=== PATIENT | male | born 1935 | race Caucasian/White ===

== ENCOUNTER 2019-05-14 11:18 | Day surgery (SDC) | payer OTHER ==
[2019-05-14 12:26] VITALS: TEMP 98.2
[2019-05-14] MEDS ORDERED: FERRIC CARBOXYMALTOSE 750 MG in SODIUM CHLORIDE 250 ML IVPB ONE (13:00)
[2019-05-14 15:00] VITALS: BP 115/59; PULSE 67
== END 2019-05-14 15:01 | disposition home or self-care (01) ==
LOC: JINFUSION 11:18 → J7W 11:20 → JINFUSION 15:01
PROVIDERS: ATTEND Family Medicine
PROC: 3E033GC Introduction of Other Therapeutic Substance into Peripheral Vein, Percutaneous Approach (ICD-10-PCS; principal; 2019-05-14)
DX: D50.9 Iron deficiency anemia, unspecified (principal)
CPT/HCPCS: 96365; 96366; J1439

== ENCOUNTER 2019-05-21 11:07 | Day surgery (SDC) | payer OTHER ==
[2019-05-21] MEDS ORDERED: FERRIC CARBOXYMALTOSE 750 MG in SODIUM CHLORIDE 250 ML IVPB ONE (12:00)
[2019-05-21 14:03] VITALS: BP 125/58; PULSE 65; TEMP 98.3
== END 2019-05-21 13:15 | disposition home or self-care (01) ==
LOC: JINFUSION 11:07 → J7W 11:10 → JINFUSION 13:15
PROVIDERS: ATTEND Family Medicine
PROC: 3E033GC Introduction of Other Therapeutic Substance into Peripheral Vein, Percutaneous Approach (ICD-10-PCS; principal; 2019-05-21)
DX: D50.9 Iron deficiency anemia, unspecified (principal)
CPT/HCPCS: 96365; J1439

== ENCOUNTER 2020-09-07 11:10 | Day surgery (SDC) | payer OTHER ==
[2020-09-07 11:49] VITALS: TEMP 98; BMI 19.0
[2020-09-07] MEDS ORDERED: FERRIC CARBOXYMALTOSE 750 MG in SODIUM CHLORIDE 250 ML IVPB ONE (12:15)
[2020-09-07 13:47] VITALS: BP 118/50; PULSE 83
== END 2020-09-07 13:49 | disposition home or self-care (01) ==
LOC: FINFUSION 11:10 → FM/S 11:17 → FINFUSION 13:49
PROVIDERS: ATTEND Family Medicine
PROC: 3E033GC Introduction of Other Therapeutic Substance into Peripheral Vein, Percutaneous Approach (ICD-10-PCS; principal; 2020-09-07)
DX: D50.9 Iron deficiency anemia, unspecified (principal)
CPT/HCPCS: 96365; J1439

== ENCOUNTER 2020-09-15 10:57 | Day surgery (SDC) | payer OTHER ==
[2020-09-15 11:21] VITALS: TEMP 98.3; BMI 16.6
[2020-09-15] MEDS ORDERED: FERRIC CARBOXYMALTOSE 750 MG in SODIUM CHLORIDE 250 ML IVPB ONE (11:30)
[2020-09-15 12:32] VITALS: BP 105/50; PULSE 91
== END 2020-09-15 12:30 | disposition home or self-care (01) ==
LOC: FINFUSION 10:57 → FM/S 11:03 → FINFUSION 12:30
PROVIDERS: ATTEND Family Medicine
PROC: 3E033GC Introduction of Other Therapeutic Substance into Peripheral Vein, Percutaneous Approach (ICD-10-PCS; principal; 2020-09-15)
DX: D50.9 Iron deficiency anemia, unspecified (principal)
CPT/HCPCS: 96365; J1439

== ENCOUNTER 2022-03-28 11:15 | Observation (INO) | payer OTHER ==
[2022-03-28] MEDS ORDERED: CEFEPIME HCL/D5W 2 GM/50 ML BAG IVPB ONE (13:10)
[2022-03-28 13:29] LABS: EPITHELIAL CELLS FEW /hpf; TRIPLE PHOSPHATE CRYSTAL MANY /hpf (NONE SEEN)
[2022-03-28] MEDS ORDERED: CEFEPIME HCL 2 GM VIAL (RESTRICTED TO ID) ONE (13:37)
[2022-03-28 13:45] LABS: HEMATOCRIT 37.1 % (35.4-49); HEMOGLOBIN 12.7 G/dL (11.7-16.9); MCH 32.2 pg (25.7-33.7); MCHC 34.2 g/dl (32.0-35.9); MEAN CELL VOLUME 94.2 fl (80-96); MEAN PLT VOLUME 7.3 fl (7.5-11.1); PLATELET COUNT 401.5 10^3/uL (134-434); RBC 3.94 10^6/uL (4.00-5.60); RDW 14.2 % (11.9-15.9); WHITE BLOOD COUNT 8.4 10^3/uL (4.0-10.8)
[2022-03-28 13:52] LABS: ALBUMIN 3.1 g/dl (3.4-5.0); CALCIUM 8.6 mg/dl (8.5-10); TOT PROT 7.3 g/dl (6.4-8.2)
[2022-03-28 18:14] VITALS: BMI 19.0
[2022-03-28] MEDS: CEFTRIAXONE 1 GM in DEXTROSE 5%-WATER - 50 ML IVPB SCH (19:55)
[2022-03-29] MEDS: MAG HYDROX/ALH/SMC/DPHA/LIDO 240 ML MOUTHWASH MM SCH ×5 (00:10→18:30)
[2022-03-29] MEDS: LEVOTHYROXINE NA 25 MCG TABLET (FP) PO SCH (06:23)
[2022-03-29 08:27] LABS: CALCIUM 8.8 mg/dl (8.5-10); PHOSPHOROUS 3.6 mg/dl (2.5-4.9)
[2022-03-29 10:12] LABS: BASO % 0.7 % (0-2.0); EOS % 2.5 % (0-4.5); HEMATOCRIT 34.1 % (35.4-49); HEMOGLOBIN 11.4 GM/dL (11.7-16.9); LYMPH % 18.4 % (8-40); MCH 31.4 pg (25.7-33.7); MCHC 33.5 g/dl (32.0-35.9); MEAN CELL VOLUME 93.7 fl (80-96); MEAN PLT VOLUME 7.4 fl (7.5-11.1); MONO % 6.2 % (3.8-10.2); NEUT % 72.2 % (42.8-82.8); PLATELET COUNT 437 10^3/uL (134-434); RBC 3.64 M/mm3 (4.00-5.60); RDW 14.1 % (11.9-15.9); WHITE BLOOD COUNT 8.3 K/mm3 (4.0-10.0)
[2022-03-29] MEDS: FERROUS GLUCONATE 324 MG TAB (FP) PO SCH (10:35)
[2022-03-29] MEDS: FINASTERIDE 5 MG TABLET (FP) PO SCH (10:35)
[2022-03-29] MEDS: EZETIMIBE 10 MG TABLET (FP) PO SCH (10:35)
[2022-03-29] MEDS ORDERED: REFRIGERATED ANITBIOTICS ONE (18:27)
[2022-03-29] MEDS: CEFTRIAXONE 1 GM in DEXTROSE 5%-WATER - 50 ML IVPB SCH (20:30)
[2022-03-30] MEDS: LEVOTHYROXINE NA 25 MCG TABLET (FP) PO SCH (06:27)
[2022-03-30 08:59] LABS: ALBUMIN 2.7 g/dl (3.4-5.0); BILIRUBIN,TOTAL 0.9 mg/dl (0.2-1); CALCIUM 8.6 mg/dl (8.5-10); CREATININE 0.9 mg/dl (0.55-1.3); TOT PROT 6.4 g/dl (6.4-8.2)
[2022-03-30 09:46] VITALS: RESP 18
[2022-03-30 10:14] LABS: BASO % 0.6 % (0-2.0); EOS % 2.7 % (0-4.5); HEMATOCRIT 32.3 % (35.4-49); HEMOGLOBIN 10.8 GM/dL (11.7-16.9); LYMPH % 18.5 % (8-40); MCH 31.4 pg (25.7-33.7); MCHC 33.4 g/dl (32.0-35.9); MEAN CELL VOLUME 94.1 fl (80-96); MEAN PLT VOLUME 7.6 fl (7.5-11.1); MONO % 6.6 % (3.8-10.2); NEUT % 71.6 % (42.8-82.8); PLATELET COUNT 451 10^3/uL (134-434); RBC 3.43 M/mm3 (4.00-5.60); WHITE BLOOD COUNT 8.4 K/mm3 (4.0-10.0)
[2022-03-30] MEDS: FINASTERIDE 5 MG TABLET (FP) PO SCH (10:51)
[2022-03-30] MEDS: ENOXAPARIN NA (PORCINE) 40 MG/0.4 ML DISP.SYRIN SQ SCH (10:51)
[2022-03-30] MEDS: FERROUS GLUCONATE 324 MG TAB (FP) PO SCH (10:51)
[2022-03-30] MEDS: EZETIMIBE 10 MG TABLET (FP) PO SCH (10:52)
[2022-03-30] MEDS ORDERED: SODIUM CHLORIDE 0.45% 1,000 ML IV SCH (11:30)
[2022-03-30] MEDS: MAG HYDROX/ALH/SMC/DPHA/LIDO 240 ML MOUTHWASH MM SCH ×3 (12:56→19:00)
[2022-03-30] MEDS: CEFTRIAXONE 1 GM in DEXTROSE 5%-WATER - 50 ML IVPB SCH (20:00)
[2022-03-30] MEDS ORDERED: REFRIGERATED ANITBIOTICS ONE (23:07)
[2022-03-31] MEDS ORDERED: REFRIGERATED ANITBIOTICS ONE ×2 (06:47→12:29)
[2022-03-31] MEDS: LEVOTHYROXINE NA 25 MCG TABLET (FP) PO SCH (06:49)
[2022-03-31] MEDS: MAG HYDROX/ALH/SMC/DPHA/LIDO 240 ML MOUTHWASH MM SCH ×4 (06:51→12:43)
[2022-03-31 08:11] LABS: BILIRUBIN,TOTAL 0.6 mg/dl (0.2-1); CALCIUM 8.6 mg/dl (8.5-10); CREATININE 0.9 mg/dl (0.55-1.3); TOT PROT 6.8 g/dl (6.4-8.2)
[2022-03-31 09:14] VITALS: BP 144/56; PULSE 76; TEMP 97.5
[2022-03-31 09:42] LABS: BASO % 0.7 % (0-2.0); EOS % 2.7 % (0-4.5); HEMATOCRIT 38.1 % (35.4-49); HEMOGLOBIN 12.7 GM/dL (11.7-16.9); LYMPH % 22.9 % (8-40); MCH 31.5 pg (25.7-33.7); MCHC 33.2 g/dl (32.0-35.9); MEAN CELL VOLUME 94.8 fl (80-96); MEAN PLT VOLUME 7.3 fl (7.5-11.1); MONO % 7.6 % (3.8-10.2); NEUT % 66.1 % (42.8-82.8); PLATELET COUNT 456 10^3/uL (134-434); RBC 4.02 M/mm3 (4.00-5.60); RDW 14.4 % (11.9-15.9); WHITE BLOOD COUNT 7.7 K/mm3 (4.0-10.0)
[2022-03-31] MEDS: FINASTERIDE 5 MG TABLET (FP) PO SCH (10:21)
[2022-03-31] MEDS: FERROUS GLUCONATE 324 MG TAB (FP) PO SCH (10:21)
[2022-03-31] MEDS: EZETIMIBE 10 MG TABLET (FP) PO SCH (10:21)
[2022-03-31] MEDS: ENOXAPARIN NA (PORCINE) 40 MG/0.4 ML DISP.SYRIN SQ SCH (10:21)
== END 2022-03-31 15:35 | disposition home or self-care (01) ==
LOC: FER 11:15 → FM/S 13:43
PROVIDERS: ADMIT Internal Medicine
PROC: 3E023GC Introduction of Other Therapeutic Substance into Muscle, Percutaneous Approach (ICD-10-PCS; principal; 2022-03-28)
PROC: 3E03329 Introduction of Other Anti-infective into Peripheral Vein, Percutaneous Approach (ICD-10-PCS; 2022-03-28)
PROC: 3E0337Z Introduction of Electrolytic and Water Balance Substance into Peripheral Vein, Percutaneous Approach (ICD-10-PCS; 2022-03-28)
DX: N39.0 Urinary tract infection, site not specified (principal); U07.1 COVID-19; N40.0 Benign prostatic hyperplasia without lower urinary tract symptoms; E03.9 Hypothyroidism, unspecified; Z97.8 Presence of other specified devices; E46 Unspecified protein-calorie malnutrition; K04.7 Periapical abscess without sinus; Z68.1 Body mass index [BMI] 19.9 or less, adult
CPT/HCPCS: 36415; 71045-TC-FY; 80048; 80053; 81003; 81015; 82436; 83735; 84100; 84133; 84300; 85025; 85027; 87086; 87186; 96361; 96365; 96367; 96372; 97116-GP; 97162-GP; 99285-25; C9803-CS; G0378; U0003; U0005